=== PATIENT | female | born 1980 | race Caucasian/White ===

== ENCOUNTER → 2017-09-11 10:06 | Outpatient (CLI) | payer OTHER, SELFPAY ==
[2017-09-12 14:22] LABS: Strep Grp B PCR POS for Grp B Strep
== END ==
PROVIDERS: Family Provider Family Medicine; PCP Family Medicine; Visit Provider Obstetrics & Gynecology
DX: Z34.03 Encounter for supervision of normal first pregnancy, third trimester (principal)
CPT/HCPCS: 87653

== ENCOUNTER 2017-10-12 15:09 | Observation (INO) | payer OTHER, SELFPAY ==
--- NOTE | 2017-10-12 15:46 | P.TNLD_ITS ---
Visit Information Visit Information Date of evaluation: 10/12/17 Primary OB Provider: Miracle Daniel Reason for Evaluation: Yes non-stress test non-stress test reason: other ( postdates ) Evaluation Evaluation Baseline heart rate: 125 Variability: Moderate (11-25) monitor accelerations: Present monitor decelerations: Absent Contraction Frequency (minutes): 7 Uterine Contraction Intensity: Mild Category of Tracing: I Cervical dilation (cm): 2 Cervical effacement (%): 85 station: 0 Diagnosis, Plan/Disposition Final Diagnosis (1) 40 weeks gestation of : Current Visit: Yes Status: Acute Plan/Disposition Plan: Repeat NST in 3 days Induction 10/17/17
== END 2017-10-12 16:00 | disposition home or self-care (01) ==
PROVIDERS: Admitting Provider Obstetrics & Gynecology; PCP Family Medicine; Visit Provider Obstetrics & Gynecology
DX: Z3A.40 40 weeks gestation of pregnancy (principal)
CPT/HCPCS: 59025; G0378; G0379

== ENCOUNTER 2017-10-13 01:55 | Inpatient (IN) | payer OTHER, SELFPAY ==
[2017-10-13] MEDS: LACTATED RINGERS 1,000 ML 100 ML IV (02:20)
[2017-10-13] MEDS: PENICILLIN G POTASSIUM 5,000,000 UNIT in DEXTROSE 5% IN WATER 250 ML IV (02:20)
[2017-10-13 03:37] VITALS: BP 120/78
--- NOTE | 2017-10-13 05:09 | PM.OBHP.1 ---
OB HPI Date/Time Date of admission: 10/13/17 Date Patient Seen: 10/13/17 Time Patient Seen: 05:17 History of Present Condition Chief complaint: EVALUATION OF LABOR : 1 Para: 0 Estimated Date of Delivery: 10/07/17 Estimated Gestational Age (weeks): 40+ 6 Narrative: Emma Mccoy is a 37 year old female a 1 para 0 at 40-,6/7 weeks gestation who presented in active labor Indications Other reason(s) for admission: Active labor History of Present care: good care, initiated at week # (8), number of visits (13) and pounds weight gain (38) Dating criteria: LMP confirmed by 1st trimester US Ultrasounds: normal 1st trimester US and normal mid trimester US Obstetrical complications: none Medical complications: none Preadmission Labs Blood type: A (+) positive -: Antibody screen: negative, GBS status: positive, HBsAG: negative, HIV: negative, HSV 1: positive, HSV 2: negative and RPR/VDLR: negative -: Chlamydia screen: not detected and Gonorrhea screen: not detected -: Rubella: immune and Varicella: immune HCT: 29.3 HCAB: negative PAP: Normal Cell-free DNA: Normal male Urine: Nefative 1 hr GTT: 92 Evaluation Evaluation Baseline heart rate: 135 Variability: Moderate (11-25) monitor accelerations: Present monitor decelerations: Absent Contraction Frequency (minutes): 3 Uterine Contraction Intensity: Strong/Firm Category of Tracing: I Cervical dilation (cm): 10 Cervical effacement (%): 100 station: -1 [facility] Social History Smoking Status: Never smoker Meds Home Medications Medication Instructions Recorded Confirmed Type No Known Home Medications 10/13/17 10/13/17 History Allergies Allergy/AdvReac Type Severity Reaction Status Date / Time No Known Drug Allergies Allergy Verified 10/13/17 02:31 Exam Vital Signs (past 8 hours): - 10/13/17 03:37 Blood Pressure 120/78 Narrative Exam Narrative: Generally: Patient lying in bed, in moderate distress secondary to pain of contractions Lungs: Clear to auscultation bilaterally Cardiovascular: Regular rate and rhythm Abdomen: Fundal height: 41 cm Estimated weight 8-8 1/2 pounds Extremities: Trace edema, negative Homans Assessment and Plan (1) 40 weeks gestation of : Current visit: Yes Status: Acute Assessment: 37-year-old 1 para 0 at 40-,6/7 weeks gestation in active labor entering 2nd stage GBS positive this, status post 1 dose of antibiotics Plan: Artificial rupture of membranes performed with copious clear amniotic fluid Expected management to spontaneous vaginal delivery (2) Active labor: Current visit: Yes Status: Acute
--- NOTE | 2017-10-13 05:25 | P.HPOB_ITS ---
OB HPI Date/Time Date of admission: 10/13/17 Date Patient Seen: 10/13/17 Time Patient Seen: 05:17 History of Present Condition Chief complaint: EVALUATION OF LABOR : 1 Para: 0 Estimated Date of Delivery: 10/07/17 Estimated Gestational Age (weeks): 40+ 6 Narrative: Emma Mccoy is a 37 year old female a 1 para 0 at 40- ,6/7 weeks gestation who presented in active labor Indications Other reason(s) for admission: Active labor History of Present care: good care, initiated at week # (8), number of visits (13) and pounds weight gain (38) Dating criteria: LMP confirmed by 1st trimester US Ultrasounds: normal 1st trimester US and normal mid trimester US Obstetrical complications: none Medical complications: none Preadmission Labs Blood type: A (+) positive -: Antibody screen: negative, GBS status: positive, HBsAG: negative, HIV: negative, HSV 1: positive, HSV 2: negative and RPR/VDLR: negative -: Chlamydia screen: not detected and Gonorrhea screen: not detected -: Rubella: immune and Varicella: immune HCT: 29.3 HCAB: negative PAP: Normal Cell-free DNA: Normal male Urine: Nefative 1 hr GTT: 92 Evaluation Evaluation Baseline heart rate: 135 Variability: Moderate (11-25) monitor accelerations: Present monitor decelerations: Absent Contraction Frequency (minutes): 3 Uterine Contraction Intensity: Strong/Firm Category of Tracing: I Cervical dilation (cm): 10 Cervical effacement (%): 100 station: -1 [facility] Social History Smoking Status: Never smoker Meds Home Medications Medication Instructions Recorded Confirmed Type No Known Home Medications 10/13/17 10/13/17 History Allergies Allergy/AdvReac Type Severity Reaction Status Date / Time No Known Drug Allergies Allergy Verified 10/13/17 02:31 Exam Vital Signs (past 8 hours): - 10/13/17 03:37 Blood Pressure 120/78 Narrative Exam Narrative: Generally: Patient lying in bed, in moderate distress secondary to pain of contractions Lungs: Clear to auscultation bilaterally Cardiovascular: Regular rate and rhythm Abdomen: Fundal height: 41 cm Estimated weight 8-8 1/2 pounds Extremities: Trace edema, negative Homans Assessment and Plan (1) 40 weeks gestation of : Current visit: Yes Status: Acute Assessment: 37-year-old 1 para 0 at 40-,6/7 weeks gestation in active labor entering 2nd stage GBS positive this, status post 1 dose of antibiotics Plan: Artificial rupture of membranes performed with copious clear amniotic fluid Expected management to spontaneous vaginal delivery (2) Active labor: Current visit: Yes Status: Acute
[2017-10-13] MEDS: PENICILLIN G POTASSIUM 3,000,000 UNIT/50 ML FROZ.PIGGY 100 UNIT IV (06:13)
--- NOTE | 2017-10-13 08:35 | PM.OBPRVD ---
Delivery date: 10/13/17 Intrapartal events: Prolonged 2nd Stage > 2.5 hours Induction method: none Delivery monitor: external FHT Route of delivery: forceps Indication for instrumentation: other (Direct occiput posterior with no progress of descent) Episiotomy description: Midline Laceration description: Perineal - 3rd Degree Delivery repair: chromic Estimated blood loss (mL): 400 Anesthesia type: Spinal Complications: There were no complications. The patient had a vaginal septum which actually tore the process of descent of the head and actual delivery of the baby. There was no unusual bleeding. Vagina was checked carefully for any lacerations secondary to the septum or to the forceps and none were found Narrative: Patient presented in active labor and made good progress to complete. Patient pushed for approximately 3 hr and brought the head to a plus two station. The baby was in direct occiput posterior. Patient had a vaginal septum which tore during the progress of labor. Vacuum was applied but came off. Laufe forceps were applied in the midline without difficulty and with one push a live-born male delivered with scores of eight at 1 min nine at 5 min in good condition. There was meconium-stained fluid. The baby was suctioned. The vagina was checked for tears and none were found. A median episiotomy was performed and a small third-degree extension occurred during the course of delivery. The placenta delivered spontaneously. The cord had three vessels. The estimated blood loss was 400 cc. The episiotomy and extension repaired with two 0 chromic suture in the standard fashion without difficulty. Plan for aftercare: Routine aftercare basilio
[2017-10-13] MEDS: IBUPROFEN 600 MG TABLET PO ×3 (11:40→23:50)
[2017-10-13] MEDS: DERMOPLAST SPRAY 20% 60 ML 1 SPRAY TOP (11:40)
[2017-10-13] MEDS: DOCUSATE 250 MG CAPSULE PO (17:38)
[2017-10-13] MEDS: OXYCODONE/ACETAMINOPHEN 5/325 TABLET 2 TAB PO (17:39)
[2017-10-13] MEDS: FERROUS GLUCONATE 324 MG TABLET PO (17:40)
[2017-10-14] MEDS: IBUPROFEN 600 MG TABLET PO (05:30)
[2017-10-14 06:32] LABS: Hematocrit 30.9 % (36-46); Hemoglobin 10.3 g/dL (12.0-16.0)
[2017-10-14] MEDS: PRENATAL VIT,CALC/IRON/FOLIC 1 TABLET 1 TAB PO (09:31)
[2017-10-14] MEDS: FERROUS GLUCONATE 324 MG TABLET PO (09:31)
--- NOTE | 2017-10-14 12:04 | PM.OBDS.1 ---
Discharge Providers Date of admission: 10/13/17 01:55 Primary care physician: Ryann Salcido MD Consults: 10/13/17 08:41 Consult to Aerospace Technician Routine Comment: Discharge provider: Yao Alvarado MD Summary Discharge Diagnosis (1) 40 weeks gestation of : Status: Acute Problem Details: Patient is a 37-year-old white female one para one status post forceps delivery occiput posterior presentation without difficulty. Patient had a median episiotomy with a small third-degree tear repaired with two 0 chromic. Estimated blood loss at delivery was 400 cc. Post delivery the patient did well she remained afebrile with stable vital size progressively element today ambulated. (2) Active labor: Status: Acute Problem Details: Fundus U minus two Perineum looks fine without ecchymoses edema Time Spent with Patient Total time spent providing and/or coordinating discharge services: 10 min Objective Labs Result Diagrams: 10/14/17 06:21 Labs: Laboratory Results - last 24 hr 10/14/17 06:21 Hgb 10.3 L Hct 30.9 L Discharge Plan Discharge Plan Patient Disposition: Home Discharge comment: follow up [address] Daniel Discharge Med Rec/Prescriptions Prescriptions: New benzocaine-menthol [Dermoplast (with menthol)] 20-0.5 % Aerosol 1 spray Topical Q1HR PRN (Reason: perineal pain) Qty: 1 RF: 0 oxycodone-acetaminophen 5-325 mg Tablet 2 tab PO Q4HR Qty: 30 RF: 0 docusate sodium 100 mg Capsule 100 mg PO BID PRN (Reason: Constipation) Qty: 20 RF: 0 ibuprofen 600 mg Tablet 600 mg PO Q6HR PRN (Reason: As Needed For Fever/Mild Pain) Qty: 20 RF: 0 lanolin [Zaq-B-Avvwla] Cream 1 applic Topical PRN PRN (Reason: Tenderness) Qty: 1 RF: 0 ferrous gluconate 324 mg (38 mg iron) Tablet 324 mg PO DAILY Qty: 90 RF: 0 vit,[id number] [Prenatabs Rx] 29 mg iron- 1 mg Tablet 1 tab PO DAILY Qty: 90 RF: 0 Provider Discharge Instructions Diet: Diet as Tolerated Activity: Up ad adrienne Cold/Heat Therapy: Ice packs to perineum Skin/Wound/Dressing Care Report to your healthcare provider any signs of infection, such as:: chills, fever, night sweats, increased pain and unusual drainage Discharge Data Primary Care Provider: Ryann Salcido Attending Provider: Miracle Daniel Admit Date/Time: 10/13/17 01:55
--- NOTE | 2017-10-14 12:07 | P.DS_ITS ---
Discharge Providers Date of admission: 10/13/17 01:55 Primary care physician: Ryann Salcido MD Consults: 10/13/17 08:41 Consult to Tassel Clipper Routine Comment: Discharge provider: Yao Alvarado MD Summary Discharge Diagnosis (1) 40 weeks gestation of : Status: Acute Problem Details: Patient is a 37-year-old white female one para one status post forceps delivery occiput posterior presentation without difficulty. Patient had a median episiotomy with a small third-degree tear repaired with two 0 chromic. Estimated blood loss at delivery was 400 cc. Post delivery the patient did well she remained afebrile with stable vital size progressively element today ambulated. (2) Active labor: Status: Acute Problem Details: Fundus U minus two Perineum looks fine without ecchymoses edema Time Spent with Patient Total time spent providing and/or coordinating discharge services: 10 min Objective Labs Result Diagrams: 10/14/17 06:21 Labs: Laboratory Results - last 24 hr 10/14/17 06:21 Hgb 10.3 L Hct 30.9 L Discharge Plan Discharge Plan Patient Disposition: Home Discharge comment: follow up [address] Daniel Discharge Med Rec/Prescriptions Prescriptions: New benzocaine-menthol [Dermoplast (with menthol)] 20-0.5 % Aerosol 1 spray Topical Q1HR PRN (Reason: perineal pain) Qty: 1 RF: 0 oxycodone-acetaminophen 5-325 mg Tablet 2 tab PO Q4HR Qty: 30 RF: 0 docusate sodium 100 mg Capsule 100 mg PO BID PRN (Reason: Constipation) Qty: 20 RF: 0 ibuprofen 600 mg Tablet 600 mg PO Q6HR PRN (Reason: As Needed For Fever/Mild Pain) Qty: 20 RF: 0 lanolin [Uki-H-Ubgian] Cream 1 applic Topical PRN PRN (Reason: Tenderness) Qty: 1 RF: 0 ferrous gluconate 324 mg (38 mg iron) Tablet 324 mg PO DAILY Qty: 90 RF: 0 [id number] [Prenatabs Rx] 29 mg iron- 1 mg Tablet 1 tab PO DAILY Qty: 90 RF: 0 Provider Discharge Instructions Diet: Diet as Tolerated Activity: Up ad adrienne Cold/Heat Therapy: Ice packs to perineum Skin/Wound/Dressing Care Report to your healthcare provider any signs of infection, such as:: chills, fever, night sweats, increased pain and unusual drainage Discharge Data Primary Care Provider: Ryann Salcido Attending Provider: Miracle Daniel Admit Date/Time: 10/13/17 01:55
== END 2017-10-14 12:52 | disposition home or self-care (01) | DRG 775 ==
PROVIDERS: Admitting Provider Obstetrics & Gynecology; Family Provider Family Medicine; PCP Family Medicine; Visit Provider Obstetrics & Gynecology
DX: O48.0 Post-term pregnancy (principal); O70.20 Third degree perineal laceration during delivery, unspecified; Z3A.40 40 weeks gestation of pregnancy; Z37.0 Single live birth; O64.0XX0 Obstructed labor due to incomplete rotation of fetal head, not applicable or unspecified; O99.824 Streptococcus B carrier state complicating childbirth
CPT/HCPCS: 01967; 36415; 59025; 59050; 59400; 59409; 76815; 85014; 85018; G0378; G0379; J2540

== ENCOUNTER → 2020-01-27 10:56 | Outpatient (CLI) | payer OTHER, SELFPAY ==
[2020-01-27 12:11] LABS: Add Manual Diff / Slide Review NO; Basophils Absolute Auto 0 /uL (0-100); Basophils Percent Auto 0.5 % (0-2); Eosinophils Absolute Auto 100 /uL (0-450); Eosinophils Percent Auto 0.9 % (2-4); Hematocrit 33.1 % (36-46); Hemoglobin 11.4 g/dL (12.0-16.0); Lymphocytes Absolute Auto 1300 /uL (1100-4500); Lymphocytes Percent Auto 17.4 % (25-40); Mean Corpuscular HGB Conc 34.3 % (30-36); Mean Corpuscular Hemoglobin 32.8 PG (26-34); Mean Corpuscular Volume 95.7 fL (80-100); Monocytes Absolute Auto 400 /uL (0-900); Neutrophils Absolute Auto 5800 /uL (1500-7000); Neutrophils Percent Auto 76.2 % (50-75); Platelet Count 307 X10^3/uL (150-400); Red Blood Cell Count 3.46 X10^6/uL (4.0-5.2); Red Cell Distribution Width 13.1 % (11.6-14.8); White Blood Cell Count 7.6 X10^3/uL (4.5-11.0)
[2020-01-27 12:58] LABS: Hepatitis B Surface Antigen NEGATIVE s/c (NEGATIVE); Rubella Antibody IgG 50.7 IU/mL (>15)
[2020-01-27 13:17] LABS: HIV 1 & 2 Ab/Ag 4th Gen Combo NEGATIVE (NEGATIVE); Hep C Virus Ab w/Reflex Quant NEGATIVE s/c (NEGATIVE)
[2020-01-28 06:55] LABS: RPR Screen Non Reactive (Non Reactive)
[2020-01-28 07:40] LABS: Varicella IgG Antibody 903 index (Immune >165)
== END ==
PROVIDERS: Family Provider Family Medicine; PCP Family Medicine; Referring Provider Obstetrics & Gynecology; Visit Provider Obstetrics & Gynecology
DX: O09.521 Supervision of elderly multigravida, first trimester (principal); Z36.0 Encounter for antenatal screening for chromosomal anomalies; Z3A.12 12 weeks gestation of pregnancy
CPT/HCPCS: 36415; 80055; 81420; 86787; 86803; 86850; 86900; 86901; 87389

== ENCOUNTER → 2020-03-02 11:11 | Outpatient (CLI) | payer OTHER, SELFPAY ==
[2020-03-04 19:40] LABS: AFP Value 49.9 ng/mL (.); Gest Age on Col Date 19.9 weeks (.); Insulin Dep Diabetes No (.); OSBR Risk 1IN 10000 (.); Results Report (.); Test Results *Screen Negative* (.)
== END ==
PROVIDERS: Family Provider Family Medicine; PCP Family Medicine; Referring Provider Obstetrics & Gynecology; Visit Provider Obstetrics & Gynecology
DX: Z34.90 Encounter for supervision of normal pregnancy, unspecified, unspecified trimester (principal); Z3A.17 17 weeks gestation of pregnancy
CPT/HCPCS: 36415; 82105

== ENCOUNTER → 2020-03-24 12:08 | Outpatient (CLI) | payer OTHER, SELFPAY ==
--- NOTE | 2020-03-24 12:09 | DI.US.S_ITS ---
PROCEDURE: US OB >= 14 WEEKS FETUS INDICATIONS: Anatomy Scan OUTSIDE/PRIOR DATING DATA: Last menstrual period (LMP): 11/11/2019 . LMP-based estimated date of delivery (ERMELINDA): 08/08/2020 . First dating scan (date and location): 12/29/2019 . Estimated date of delivery (ERMELINDA) from first dating scan: 08/08/2020 . TECHNIQUE: Real-time scanning was performed of the fetus, with image documentation and biometric measurements. COMPARISON: [facility], , OB <= 14 WEEKS FETUS, 12/29/2019, 14:45. [facility], OB >= 14 WEEKS FETUS, 10/12/2017, 14:55. [facility], OB <= 14 WEEKS FETUS, 01/27/2020, 10:50. FINDINGS: General: A single living intrauterine gestation is present. Presentation: Vertex. Placenta: Placental position is posterior , without previa. Lower placental edge 2 cm or less from internal cervical os qualifies as low lying placenta. Amniotic fluid index: 14.6 cm, normal range is 5-24 cm. heart rate: 152 beats per minute. Maternal cervical canal: 4.3 cm long. Normal lower limit is 2.5 cm. biometrics: Biparietal diameter: 4.9 cm 20 weeks 5 days Head circumference: 18.2 cm 20 weeks 4 days Abdominal circumference: 15.6 cm 20 weeks 5 days Femur length: 3.5 cm 21 weeks 1 day Estimated gestational age from initial scan: 20 weeks 3 days Composite gestational age from present scan: 20 weeks 6 days Estimated weight and percentile: 381 g 69th percentile Anatomic survey: Neuro: Ventricles are non-dilated at less than 10 mm. Cisterna magna is normal at 3-11 mm. Cerebellum is normal in size and morphology. Nuchal skin fold: Normal at less than 6 mm between 14-21 weeks gestational age. Face: Nose and lips, facial profile are normal. Spine: No evidence for spina bifida. Heart: 4-chambered heart is present, with normal ventricular outflow tracts. Diaphragm: Diaphragm is intact. Stomach: Left-sided stomach is present. Kidneys: No hydronephrosis. Normal is less than 5 mm in 2nd trimester, less than 7 mm in 3rd trimester. Cord: 3-vessel cord has orthotopic insertion. Bladder: Normal in size. Extremities: All 4 extremities identified. IMPRESSION: 1. Single live intrauterine with ultrasound gestational age today of 20 weeks 6 days. 2. Anatomy is within normal limits. Dictated by: Mary Roman M.D. on 03/24/2020 at 14:35 Approved by: Mary Roman M.D. on 03/24/2020 at 14:38
== END ==
PROVIDERS: Family Provider Family Medicine; PCP Family Medicine; Referring Provider Obstetrics & Gynecology; Visit Provider Obstetrics & Gynecology
DX: Z34.82 Encounter for supervision of other normal pregnancy, second trimester (principal); Z3A.20 20 weeks gestation of pregnancy
CPT/HCPCS: 76811

== ENCOUNTER → 2020-04-21 10:31 | Outpatient (CLI) | payer OTHER, SELFPAY ==
[2020-04-21 15:18] LABS: Appearance Urine UA SL CLOUDY; Bilirubin Urine UA NEGATIVE (NEGATIVE); Color Urine UA YELLOW; Glucose Urine UA NEGATIVE (Negative); Ketones Urine UA NEGATIVE (NEGATIVE); Leukocyte Esterase Urine UA TRACE (NEGATIVE); Nitrite Urine UA NEGATIVE (Negative); Occult Blood Urine UA NEGATIVE (Negative); Protein Urine UA NEGATIVE (Negative); Urobilinogen Urine UA 0.2 E.U./dL (0.2)
[2020-04-21 15:25] LABS: Amorphous Sediment Urine 2+; Bacteria Urine Moderate (10-30); Mucus Urine 1+ (Negative); RBC Urine None Seen (0-5/HPF); Squamous Epithelial Cell Urine 5-10 /HPF (0-5/HPF); WBC Urine 5-10/HPF (0-5/HPF)
== END ==
PROVIDERS: Family Provider Family Medicine; PCP Family Medicine; Visit Provider Obstetrics & Gynecology
DX: Z34.81 Encounter for supervision of other normal pregnancy, first trimester (principal)
CPT/HCPCS: 81003; 81015; 87086

== ENCOUNTER → 2020-05-19 12:00 | Outpatient (CLI) | payer OTHER, SELFPAY ==
[2020-05-21 00:52] LABS: Chlamydia trachomatis NAA Negative (Negative); Neisseria gonorrhoeae NAA Negative (Negative)
== END ==
PROVIDERS: Family Provider Family Medicine; PCP Family Medicine; Visit Provider Obstetrics & Gynecology
DX: Z34.83 Encounter for supervision of other normal pregnancy, third trimester (principal); Z3A.28 28 weeks gestation of pregnancy
CPT/HCPCS: 87491; 87591

== ENCOUNTER → 2020-07-20 14:39 | Outpatient (ROUT) | payer OTHER, SELFPAY ==
[2020-07-20 16:21] LABS: Urine N gonorrhoeae NOT DETECTED
[2020-07-20 16:24] LABS: Urine Chlamydia NOT DETECTED
== END ==
PROVIDERS: Family Provider Family Medicine; PCP Family Medicine; Visit Provider Obstetrics & Gynecology
DX: Z34.83 Encounter for supervision of other normal pregnancy, third trimester (principal); Z3A.37 37 weeks gestation of pregnancy
CPT/HCPCS: 87491; 87591; 87653

== ENCOUNTER → 2020-07-20 14:41 | Outpatient (CLI) | payer OTHER, SELFPAY ==
[2020-07-21 13:32] LABS: Strep Grp B PCR NEG for Grp B Strep
== END ==
PROVIDERS: Family Provider Family Medicine; PCP Family Medicine; Visit Provider Obstetrics & Gynecology
DX: Z34.83 Encounter for supervision of other normal pregnancy, third trimester (principal); Z3A.37 37 weeks gestation of pregnancy
CPT/HCPCS: 87653

== ENCOUNTER → 2020-08-03 13:31 | Outpatient (CLI) | payer OTHER, SELFPAY ==
[2020-08-03 14:07] LABS: COVID19 -Nasal RAPID Negative (Negative)
== END ==
PROVIDERS: Family Provider Family Medicine; PCP Family Medicine; Visit Provider Obstetrics & Gynecology
DX: Z34.83 Encounter for supervision of other normal pregnancy, third trimester (principal); Z3A.39 39 weeks gestation of pregnancy
CPT/HCPCS: 87635

== ENCOUNTER 2020-08-04 07:29 | Inpatient (IN) | payer OTHER, SELFPAY ==
[2020-08-04 08:29] LABS: Add Manual Diff / Slide Review NO; Basophils Absolute Auto 100 /uL (0-100); Basophils Percent Auto 0.7 % (0-2); Eosinophils Absolute Auto 100 /uL (0-450); Eosinophils Percent Auto 1.2 % (2-4); Hematocrit 28.5 % (36-46); Hemoglobin 9.6 g/dL (12.0-16.0); Lymphocytes Absolute Auto 1800 /uL (1100-4500); Lymphocytes Percent Auto 15.2 % (25-40); Mean Corpuscular HGB Conc 33.6 % (30-36); Mean Corpuscular Hemoglobin 32.2 PG (26-34); Monocytes Absolute Auto 700 /uL (0-900); Monocytes Percent Auto 5.6 % (3-14); Neutrophils Absolute Auto 9400 /uL (1500-7000); Neutrophils Percent Auto 77.3 % (50-75); Platelet Count 312 X10^3/uL (150-400); Red Blood Cell Count 2.96 X10^6/uL (4.0-5.2); Red Cell Distribution Width 13.8 % (11.6-14.8); White Blood Cell Count 12.1 X10^3/uL (4.5-11.0)
[2020-08-04] MEDS: OXYTOCIN PREMIX 30 UNIT/500 ML PLAST..BAG IV (08:44)
[2020-08-04] MEDS: LACTATED RINGERS 1,000 ML 100 ML IV (08:44)
--- NOTE | 2020-08-04 18:54 | PM.OBHP.1 ---
OB HPI Date/Time Date of admission: 08/04/20 Date Patient Seen: 08/04/20 Time Patient Seen: 07:15 History of Present Condition Chief complaint: INDUCTION : 2 Para: 1 Estimated Date of Delivery: 08/08/20 Estimated Gestational Age (weeks): 39+3 Narrative: Emma Mccoy is a 40 year old female 2 para 1 at 39 and 3/7 weeks gestation who presents for induction of labor due to advanced maternal age. Indications Indication for induction OB: other (Advanced maternal age) History of Present care: good care, initiated at week # (8), number of visits (11) and pounds weight gain (41) Dating criteria: LMP confirmed by 1st trimester US Ultrasounds: normal 1st trimester US and normal mid trimester US Obstetrical complications: none Medical complications: none Preadmission Labs Blood type: A (+) positive -: Antibody screen: negative, GBS status: negative, HBsAG: negative, HIV: negative and RPR/VDLR: negative -: Chlamydia screen: not detected and Gonorrhea screen: not detected -: Rubella: immune and Varicella: immune HCT: 28.5 HCAB: negative PAP: Normal Cell-free DNA: Normal Urine: Negative 1 hr GTT: 92 Prior (ies) History: 1 forceps assisted vaginal delivery after prolonged 2nd stage Evaluation Evaluation Baseline heart rate: 140 Variability: Moderate (11-25) monitor accelerations: Present Monitor Decelerations: Absent Contraction Frequency (minutes): 3 Uterine Contraction Intensity: Moderate Status: Category l Cervical dilation (cm): 4 Cervical effacement (%): 100 station: -1 Laboratory results: Laboratory Tests 08/04/20 08/04/20 08:20 08:20 WBC 12.1 H RBC 2.96 L Hgb 9.6 L Hct 28.5 L MCV 96.0 MCH 32.2 MCHC 33.6 RDW 13.8 Plt Count 312 Neut % (Auto) 77.3 H Lymph % (Auto) 15.2 L [place] % (Auto) 5.6 Eos % (Auto) 1.2 L Baso % (Auto) 0.7 Neut # (Auto) 9400 H Lymph # (Auto) 1800 [place] # (Auto) 700 Eos # (Auto) 100 Baso # (Auto) 100 Blood Type A Positive Antibody Screen Negative [facility] Medical History Allergic rhinitis AMA (advanced maternal age) multigravida 35+ Chicken pox (~1982) Generalized headaches Migraines Segmental and somatic dysfunction of rib cage (spontaneous vaginal delivery) (~10/13/17) Syncopal episodes Wears glasses Surgical History No history of previous surgery Family History: [id number] by Ancelmo Gray MD Social History marital status: number of children: 1 household members: spouse and children lives independently: Yes pets and animals: No education level: college ([employer] 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 - per patient my PhD sent me to therapy!) occupational status: employed ([employer]) current occupational exposures/hazards: Yes (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!) special emery needs: No Smoking Status: Never smoker second hand exposure: No alcohol intake: former (pre- : occasional glass of wine with dinner) substance use type: does not use Meds Home Medications and Allergies Home Medications Medication Instructions Recorded Confirmed Type vit,[id number] 1 tab PO DAILY #90 tab 10/14/17 08/04/20 Rx [Prenatabs Rx] Allergies Allergy/AdvReac Type Severity Reaction Status Date / Time No Known Drug Allergies Allergy Verified 08/03/20 12:53 Exam Vital Signs (past 8 hours): Generally: No acute distress Lungs: Clear to auscultation bilaterally Cardiovascular: Regular rate and rhythm Fundal height: 40 cm Estimated weight 8 half to 9 lb Extremities: No edema, 1+ DTRs Objective Labs Result Diagrams: 08/04/20 08:20 Labs: Laboratory Results - last 24 hr 08/04/20 08/04/20 08:20 08:20 WBC 12.1 H RBC 2.96 L Hgb 9.6 L Hct 28.5 L MCV 96.0 MCH 32.2 MCHC 33.6 RDW 13.8 Plt Count 312 Neut % (Auto) 77.3 H Lymph % (Auto) 15.2 L [place] % (Auto) 5.6 Eos % (Auto) 1.2 L Baso % (Auto) 0.7 Neut # (Auto) 9400 H Lymph # (Auto) 1800 [place] # (Auto) 700 Eos # (Auto) 100 Baso # (Auto) 100 Blood Type A Positive Antibody Screen Negative Assessment and Plan Assessment and Plan Assessment and Plan narrative: Assessment: 40-year-old 2 para 1 at 39-,3/7 weeks gestation with advanced maternal age, who presents for induction of labor Plan: Pitocin per protocol 2 Epidural as necessary Expected management to spontaneous vaginal delivery Time Spent with Patient Total time spent with greater than 50% in coordination of care (as documented) at patient's floor/unit and/or counseling patient:: 15-24 minutes
--- NOTE | 2020-08-04 19:11 | PM.OBPNLAB ---
Date/Time Date Patient Seen: 08/04/20 Time Patient Seen: 07:15 Pain Control Pain control: epidural Pelvic Exam Dilation (cm): 4 Effacement (%): 100 station: -1 Contractions Contractions on admission: irregular Monitor mode: External Pitocin rate (mU/min): 8 Contraction frequency (min): 3 Contraction duration (min): 1 Contraction pattern: Regular Contraction intensity: Moderate Status status: Category l Heart Rate Baseline: 135 Monitor Accelerations: Present Monitor Decelerations: Absent Monitor Variability: Moderate Assessment and Plan Assessment: active labor Plan: other Comments: Artificial rupture membranes with copious amounts of clear amniotic fluid
--- NOTE | 2020-08-04 19:13 | PM.OBPRVD ---
Events: Labor Induction Labor & Delivery Delivery date: 08/04/20 Intrapartal Events: Anesthetic Complications (Epidural fell out) Cervical ripening method: none Induction method: per pitocin protocol Delivery augmentation: rupture of membranes Delivery monitor: external FHT and external uterine Route of delivery: Episiotomy description: None L&D Laceration Description: Perineal - 2nd Degree Delivery repair: vicryl and chromic Estimated blood loss (mL): 150 Anesthesia Type: Spinal Complications: None Narrative: Patient complete and pushed for 10 minutes. At 4:38 p.m., a live female delivered in the FAITH presentation over an intact perineum. No nuchal cord. The remainder of the body delivered without difficulty and was placed on mom's abdomen. After the cord stopped pulsing, the cord was double clamped and cut. Pitocin was given in the IV fluids. Cord bloods were obtained. The placenta delivered intact with a three-vessel cord at 5:02 p.m.. A second-degree perineal laceration repaired in the usual fashion. Hemostasis was achieved. Fundus was massaged to firm. Estimated blood loss 150 cc. Apgars 8 at 1 minute and 9 at 5 minutes. . Spinal analgesia. Baby 1: gender: Female Presentation: vertex Position: Left Occiput Anterior Placenta delivery description: Spontaneous Cord Vessel Description: 3 Vessels score (1 min): 8 score (5 min): 9 weight: 9 lb 9 oz Plan for aftercare: Routine care
[2020-08-04] MEDS: DERMOPLAST SPRAY 20% 60 ML 1 SPRAY TOP (20:38)
[2020-08-04] MEDS: IBUPROFEN 600 MG TABLET PO (20:38)
[2020-08-04] MEDS: ACETAMINOPHEN 325 MG TABLET 650 MG PO (20:38)
[2020-08-04] MEDS: LANOLIN OINT 7 GM 1 APPLIC TOP (20:38)
[2020-08-05] MEDS: IBUPROFEN 600 MG TABLET PO (05:42)
[2020-08-05 06:39] LABS: Hemoglobin 11.2 g/dL (12.0-16.0)
[2020-08-05] MEDS: DOCUSATE 100 MG CAPSULE PO (08:41)
[2020-08-05] MEDS: PRENATAL VIT,CALC/IRON/FOLIC 1 TABLET 1 TAB PO (08:41)
[2020-08-05 13:05] VITALS: BP 105/67; PULSE 66; RESP 17; TEMP 36.6
--- NOTE | 2020-08-06 05:57 | PM.OBDS.1 ---
Discharge Providers Provider Date of admission: 08/04/20 07:29 Discharge Date: 08/05/20 Primary care physician: Ryann Salcido MD Discharge provider: Miracle Daniel MD Summary Hospital Course Date Patient Seen: 08/05/20 Time Patient Seen: 12:30 Diagnoses: Thirty-nine weeks gestation Advanced maternal age Induction of labor with Pitocin Artificial rupture of membranes Epidural/spinal anesthesia Spontaneous vaginal delivery Second-degree laceration and repair Hospital Course: Patient is a 40-year-old 2 para 2 who presented for induction of labor at 39 weeks gestation due to advanced maternal age. She was started on Pitocin. Artificial rupture of membranes was performed. She received an epidural for pain management. She progressed to complete dilation. The epidural catheter came out and a spinal was placed for the delivery. She had a spontaneous vaginal delivery without complication. She had a second-degree laceration that was repaired. Her course was unremarkable and she is discharged home on day # 1. She is . Her bleeding was tapering. Peripartum Data Delivery Method: Natural Vaginal Laceration Description: Perineal - 2nd Degree Episiotomy description: None Procedures: Pitocin induction of labor Artificial rupture membranes Epidural analgesia Spinal analgesia Spontaneous vaginal delivery Second-degree laceration repair complications: none Commodore 1: Gender: Female Disposition of : home Status at Discharge Cognitive/behavioral status at discharge: oriented Functional status at discharge: independent ambulation Overall status at discharge: patient is progressing back to baseline Time Spent with Patient Time attestation: Total time spent providing and/or coordinating discharge services: Time spent: Less than 30 minutes Objective Labs Result Diagrams: 08/05/20 06:19 Labs: Laboratory Results - last 24 hr 08/05/20 06:19 Hgb 11.2 L Hct 33.0 L Discharge Plan Discharge Plan Patient Disposition: Home Provider Discharge Comment: Call with fever, chills or bleeding vaginally more than a pad in an hour Ibuprofen 600mg every 6 hours as needed for cramping Tylenol 650mg every 6 hours as needed Discharge orders & Medications Prescriptions: Continued Prenatabs Rx 29 mg iron- 1 mg Tablet 1 tab PO DAILY Qty: 90 RF: 0 Follow up/Referrals: Miracle Daniel MD [Physician] - 6 Weeks (Appointment with for check on at 11:00 AM) Diet/Activity/Treatments Diet: Regular Activity: Nothing in the vagina Skin/Wound/Dressing Care Report to your healthcare provider any signs of infection, such as:: chills, fever, increased pain and unusual drainage Visit Report/Discharge Packet Instructions: DI for Labor and Delivery, Vaginal Discharge Data Primary Care Provider: Ryann Salcido
== END 2020-08-05 15:37 | disposition home or self-care (01) | DRG 807 ==
PROVIDERS: Admitting Provider Obstetrics & Gynecology; Family Provider Family Medicine; PCP Family Medicine; Referring Provider Obstetrics & Gynecology; Visit Provider Obstetrics & Gynecology
DX: O70.1 Second degree perineal laceration during delivery (principal); Z37.0 Single live birth; Z3A.39 39 weeks gestation of pregnancy
CPT/HCPCS: 01967; 36415; 59050; 59400; 85014; 85018; 85025; 86850; 86900; 86901; 87635; G0379; J2590